=== PATIENT | male | born 1985 | race Caucasian/White ===

== ENCOUNTER 2018-08-14 23:58 | Emergency (ER) | payer OTHER ==
[~2018-08-14] VITALS: Ht 185.4 cm; Wt 120.2 kg
[2018-08-15 01:12] LABS: BASO % 0 % (0-3); EOS # 0.4 x10^3/uL (0.0-0.7); EOS % 3 % (0-3); HEMATOCRIT 44.5 % (39.0-53.0); HEMOGLOBIN 15.6 g/dL (13.0-17.5); LYMPH # 3.1 x10^3/uL (1.0-4.8); LYMPH % 29 % (24-48); MEAN CORPUSCULAR HEMOGLOBIN 33 pg (25-35); MEAN CORPUSCULAR HGB CONC 35 g/dL (31-37); MEAN CORPUSCULAR VOLUME 93 fL (79-100); MONO # 0.7 x10^3/uL (0.0-1.1); MONO % 7 % (0-9); NEUT # 6.7 x10^3uL (1.8-7.7); NEUT % 61 % (31-73); PLATELET COUNT 413 x10^3/uL (140-400); RED BLOOD COUNT 4.79 x10^6/uL (4.30-5.70); RED CELL DISTRIBUTION WIDTH 13.8 % (11.5-14.5); WHITE BLOOD COUNT 10.9 x10^3/uL (4.0-11.0)
[2018-08-15 01:16] LABS: BILIRUBIN,URINE NEGATIVE (NEG); CLARITY,URINE CLOUDY; COLOR,URINE YELLOW; NITRITE,URINE NEGATIVE (NEG); PROTEIN,URINE NEGATIVE (NEG-TRACE)
--- NOTE | 2018-08-15 01:19 | PHYS DOC ---
Past Medical History Smoking: Less than 1pk/day Alcohol Use: Occasionally Adult General Chief Complaint Chief Complaint: FLANK PAIN HPI HPI Patient is a 33 year old man who presents with left sided chest pain and left elbow pain The patient works changing [employer] all day and at 5:00pm this afternoon, he noted onset of left-sided flank pain and chest pain. He noted no direct trauma to his left side or to his left elbow. he has repetitive motion with his left elbow. He uses an impact drill with a lot of repetitive motion and has focal pain when he flexes and extends his left elbow. Since 5:00pm, his pain has been 8/10 severity. He has left-sided chest pain that hurts worse when he takes a deep breath. He denies high cholesterol and high blood pressure. Patient is on phentermine for diet control Review of Systems Review of Systems Constitutional: Denies fever or chills Eyes: Denies change in visual acuity, redness, or eye pain HENT: Denies nasal congestion or sore throat Respiratory: Denies cough or shortness of breath Cardiovascular: with chest pain, no palpitations GI: Denies abdominal pain, nausea, vomiting, bloody stools or diarrhea : Denies dysuria or hematuria Musculoskeletal: Denies back pain, with left elbow pain Integument: Denies rash or skin lesions Neurologic: Denies headache, focal weakness or sensory changes Endocrine: Denies polyuria or polydipsia All other systems were reviewed and found to be within normal limits, except as documented in this note. Current Medications Current Medications Current Medications Medications (Trade) Dose Ordered Sig/Shahida Start Time Stop Time Status Last Admin Dose Admin Ketorolac Tromethamine (Toradol 15mg Vial) 15 mg 1X ONCE 08/15/18 02:15 08/15/18 02:16 DC 08/15/18 02:15 15 MG Morphine Sulfate (Morphine Sulfate) 5 mg 1X ONCE 08/15/18 01:30 08/15/18 01:31 DC 08/15/18 01:35 5 MG Ondansetron HCl (Zofran) 4 mg 1X ONCE 08/15/18 01:30 08/15/18 01:31 DC 08/15/18 01:34 4 MG Sodium Chloride 1,000 ml @ 1,000 mls/hr 1X ONCE 08/15/18 01:30 08/15/18 02:29 DC 08/15/18 01:29 1,000 MLS/HR Tamsulosin HCl (Flomax) 0.4 mg 1X ONCE 08/15/18 01:30 08/15/18 01:31 DC 08/15/18 01:34 0.4 MG Allergies Allergies Allergies Coded Allergies Type Severity Reaction Last Updated Verified No Known Drug Allergies 08/15/18 No Physical Exam Physical Exam Constitutional: Well developed, well nourished, no acute distress, non-toxic appearance. HENT: Normocephalic, atraumatic, bilateral external ears normal, oropharynx moist, no oral exudates, nose normal. Eyes: PERRLA, EOMI, conjunctiva normal, no discharge. Neck: Normal range of motion, no tenderness, supple, no stridor. Cardiovascular:Heart rate regular rhythm, no murmur Lungs & Thorax: Bilateral breath sounds clear to auscultation, with left lower chest, flank and back pain to palpation Abdomen: Bowel sounds normal, soft, no tenderness, no masses, no pulsatile masses. Skin: Warm, dry, no erythema, no rash. Back: No tenderness, no CVA tenderness. Extremities: Left elbow with posterior tenderness with FROM, no swelling or deformity, no cyanosis, no clubbing, ROM intact, no edema. Neurologic: Alert and oriented X 3, normal motor function, normal sensory function, no focal deficits noted. gait normal Psychologic: Affect normal, judgement normal, mood normal. Current Patient Data Vital Signs Vital Signs Date Time Temp Pulse Resp B/P (MAP) Pulse Ox O2 Delivery O2 Flow Rate FiO2 08/15/18 03:01 83 18 156/89 (111) 97 Room Air 08/15/18 00:22 97.8 97.8 Lab Values Laboratory Tests Test 08/15/18 00:30 08/15/18 01:00 Urine Collection Type Unknown Urine Color Yellow Urine Clarity Cloudy Urine pH 7.0 Urine Specific [place] >=1.030 Urine Protein Negative mg/dL (NEG-TRACE) Urine Glucose (UA) Negative mg/dL (NEG) Urine Ketones (Stick) Negative mg/dL (NEG) Urine Blood Negative (NEG) Urine Nitrite Negative (NEG) Urine Bilirubin Negative (NEG) Urine Urobilinogen Dipstick 1.0 mg/dL (0.2 mg/dL) Urine Leukocyte Esterase Negative (NEG) Urine RBC 3-5 /HPF (0-2) Urine WBC Occ /HPF (0-4) Urine Squamous Epithelial Cells Few /LPF Urine Amorphous Sediment Present /HPF Urine Bacteria Few /HPF (0-FEW) Urine Hyaline Casts Moderate /HPF Urine Granular Casts Few /HPF Urine Mucus Marked /LPF Urine Opiates Screen Neg (NEG) Urine Methadone Screen Neg (NEG) Urine Barbiturates Neg (NEG) Urine Phencyclidine Screen Neg (NEG) Urine Amphetamine/Methamphetamine Pos (NEG) Urine Benzodiazepines Screen Neg (NEG) Urine Cocaine Screen Neg (NEG) Urine Cannabinoids Screen Neg (NEG) Urine Ethyl Alcohol Neg (NEG) White Blood Count 10.9 x10^3/uL (4.0-11.0) Red Blood Count 4.79 x10^6/uL (4.30-5.70) Hemoglobin 15.6 g/dL (13.0-17.5) Hematocrit 44.5 % (39.0-53.0) Mean Corpuscular Volume 93 fL (79-100) Mean Corpuscular Hemoglobin 33 pg (25-35) Mean Corpuscular Hemoglobin Concent 35 g/dL (31-37) Red Cell Distribution Width 13.8 % (11.5-14.5) Platelet Count 413 x10^3/uL (140-400) H Neutrophils (%) (Auto) 61 % (31-73) Lymphocytes (%) (Auto) 29 % (24-48) Monocytes (%) (Auto) 7 % (0-9) Eosinophils (%) (Auto) 3 % (0-3) Basophils (%) (Auto) 0 % (0-3) Neutrophils # (Auto) 6.7 x10^3uL (1.8-7.7) Lymphocytes # (Auto) 3.1 x10^3/uL (1.0-4.8) Monocytes # (Auto) 0.7 x10^3/uL (0.0-1.1) Eosinophils # (Auto) 0.4 x10^3/uL (0.0-0.7) Basophils # (Auto) 0.0 x10^3/uL (0.0-0.2) Sodium Level 140 mmol/L (136-145) Potassium Level 4.3 mmol/L (3.5-5.1) Chloride Level 104 mmol/L (98-107) Carbon Dioxide Level 25 mmol/L (21-32) Anion Gap 11 (6-14) Blood Urea Nitrogen 14 mg/dL (8-26) Creatinine 1.2 mg/dL (0.7-1.3) Estimated GFR (Cockcroft-Gault) 68.9 BUN/Creatinine Ratio 12 (6-20) Glucose Level 95 mg/dL (70-99) Calcium Level 9.7 mg/dL (8.5-10.1) Total Bilirubin 0.2 mg/dL (0.2-1.0) Aspartate Amino Transferase (AST) 19 U/L (15-37) Alanine Aminotransferase (ALT) 21 U/L (16-63) Alkaline Phosphatase 58 U/L (46-116) Troponin I Quantitative < 0.017 ng/mL (0.000-0.055) Total Protein 7.6 g/dL (6.4-8.2) Albumin 3.3 g/dL (3.4-5.0) L Albumin/Globulin Ratio 0.8 (1.0-1.7) L Lipase 78 U/L (73-393) Ethyl Alcohol Level < 10 mg/dL (0-10) Laboratory Tests 08/15/18 01:00 Laboratory Tests 08/15/18 01:00 EKG EKG ECG 02:37 NSR @ 70 with normal axis, normal interval and no ST-T wave changes suggestive of ischemia Radiology/Procedures Radiology/Procedures [facility] [address] [place] [address] IMAGING REPORT Signed PATIENT: ANABELLE PADILLA ACCOUNT: [id number] : 1985 LOCATION: ER AGE: 33 SEX: M EXAM STATUS: DEP ER ORD. PHYSICIAN: CORI DIAS APRN REASON: pain no injury PROCEDURE: RIBS LEFT AND PA CHEST Left RIBS with chest, 3 views, 08/15/2018: HISTORY: Rib pain, no injury No rib fracture or destructive lesion is seen. No underlying pneumothorax, hemothorax or pulmonary infiltrate is seen. The heart size is normal. IMPRESSION: No significant left rib abnormality is detected. Electronically signed by: Abraham Burdick MD (08/15/2018 8:07 AM) [facility] DICTATED and SIGNED BY: ABRAHAM BURDICK MD DATE: 08/15/18 [id number] [place] [address] IMAGING REPORT Signed PATIENT: ANABELLE PADILLA ACCOUNT: [id number] : 1985 LOCATION: ER AGE: 33 SEX: M EXAM STATUS: DEP ER ORD. PHYSICIAN: CORI DIAS APRN REASON: pain no injury PROCEDURE: ELBOW LEFT 3V Left elbow, 3 views, 08/15/2018: HISTORY: Elbow pain No fracture or dislocation is identified. No significant arthritic change is seen. A small sclerotic focus in the proximal radius is compatible with a bone island. No joint effusion is evident. IMPRESSION: No significant left elbow abnormality is detected. Electronically signed by: Abraham Burdick MD (08/15/2018 8:08 AM) [facility] DICTATED and SIGNED BY: ABRAHAM BURDICK MD DATE: 08/15/18 0808 [facility] [address] [place] [address] IMAGING REPORT Signed PATIENT: ANABELLE PADILLA ACCOUNT: [id number] : 1985 LOCATION: ER AGE: 33 SEX: M EXAM STATUS: REG ER ORD. PHYSICIAN: CORI DIAS APRN REASON: left flank pain PROCEDURE: CT ABDOMEN PELVIS WO CONTRAST CT abdomen and pelvis without contrast: Reason for examination: Left flank pain. Helical images were obtained through the abdomen pelvis with no intravenous or oral contrast. Reconstruction was performed in sagittal and coronal plane. Exposure: One or more of the following individualized dose reduction techniques were utilized for this examination: 1. Automated exposure control 2. Adjustment of the mA and/or kV according to patient size 3. Use of iterative reconstruction technique. The lung bases are clear. The heart size is normal with no pericardial effusion. No abnormality seen at the liver, spleen, adrenal glands or pancreas. Gallbladder is contracted but there are no choleliths evident. The abdominal aorta and inferior vena cava show no acute abnormalities. The appendix appears be surgically absent. The stomach is not distended. The colon shows no evidence of diverticulosis or diverticulitis. The small intestinal tract is not distended and shows no bowel obstruction. The kidneys show no renal masses, hydronephrosis, renal calculi or evidence of obstructive uropathy. No abnormality seen at the bladder, prostate gland or seminal vesicles. No free fluid or free air is seen in the abdomen or pelvis. No acute bony abnormalities are seen. IMPRESSION: Contracted gallbladder but no cholelithiasis. No renal calculi or evidence of obstructive uropathy. No evidence of diverticulitis. No other focal abnormality seen in the abdomen or pelvis. Electronically signed by: Pedro Michael MD (08/15/2018 2:49 AM) [id number] DICTATED and SIGNED BY: PEDRO MICHAEL MD DATE: 08/15/18 0242 Course & Med Decision Making Course & Med Decision Making Pertinent Labs and Imaging studies reviewed. (See chart for details) Emergency Department course Patient presents with left chest, flank and elbow pain DDx- ACS, kidney stones, chest wall strain, elbow strain, fracture 03:20 The patient was stable emergency department improved after IV Toradol. ECG and troponin showed no evidence acute coronary syndrome. Chest x-ray is unremarkable. Abdominal pelvic CT scan was unremarkable. Labs are unremarkable. UDS positive for methamphetamines. The patient takes phentermine for diet control. Patient will follow-up with PCP for further evaluation. Dragon Disclaimer Dragon Disclaimer This electronic medical record was generated, in whole or in part, using a voice recognition dictation system. Departure Departure Impression: Primary Impression: Chest wall muscle strain Additional Impressions: Sprain of left elbow Muscle strain of left upper back Methamphetamine use Disposition: 01 HOME, SELF-CARE Condition: STABLE Referrals: SUE BOO MD (PCP) Follow-up tomorrow for further evaluation Patient Instructions: Chest Tube, Elbow Injury, Muscle Strain Additional Instructions: If you develop worse pain, shortness breath, weakness return to emergency department immediately Scripts Hydrocodone/Apap 5-325 (NORCO 5-325 TABLET) 1 Each Tablet 1 TAB PO PRN Q6HRS PRN for PAIN for 3 Days, #12 TAB 0 Refills Prov: SADIE MATTHEWS MD 08/15/18 Ibuprofen (IBUPROFEN) 800 Mg Tablet 800 MG PO PRN Q8HRS PRN for INFLAMMATION for 5 Days, #15 TAB Take with food Prov: SADIE MATTHEWS MD 08/15/18 Problem Qualifiers SADIE MATTHEWS MD Aug 15, 2018 01:19
[2018-08-15] MEDS ORDERED: TAMSULOSIN 0.4 MG CAP.ER.24H. PO ONE (01:30)
[2018-08-15] MEDS ORDERED: ONDANSETRON PF 4 MG/2 ML VIAL. IV ONE (01:30)
[2018-08-15] MEDS ORDERED: IV NORMAL SALINE 1000ML BAG 1,000 ML IV ONE (01:30)
[2018-08-15] MEDS ORDERED: MORPHINE SULFATE 10 MG/ML VIAL. IV ONE (01:30)
[2018-08-15 01:31] LABS: CALCIUM 9.7 mg/dL (8.5-10.1); CREATININE 1.2 mg/dL (0.7-1.3); GFR 68.9; POTASSIUM 4.3 mmol/L (3.5-5.1)
[2018-08-15 01:31] LABS: BARBITURATES NEG (NEG); BENZODIAZEPINES NEG (NEG); CANNABINOIDS NEG (NEG); COCAINE NEG (NEG); METHADONE NEG (NEG); OPIATES NEG (NEG); PHENCYCLIDINE NEG (NEG)
[2018-08-15 01:35] LABS: ALBUMIN 3.3 g/dL (3.4-5.0); ALBUMIN/GLOBULIN RATIO 0.8 (1.0-1.7); TOTAL BILIRUBIN 0.2 mg/dL (0.2-1.0); TOTAL PROTEIN 7.6 g/dL (6.4-8.2)
[2018-08-15 01:37] LABS: BACTERIA,URINE FEW /HPF (0-FEW); WBC,URINE OCC /HPF (0-4)
[2018-08-15 01:38] LABS: AMORPHOUS SEDIMENT,UR PRESENT /HPF; GRANULAR CASTS,URINE FEW /HPF; HYALINE CASTS, URINE MODERATE /HPF; SQUAMOUS EPITHELIAL CELL,UR FEW /LPF
[2018-08-15 01:42] LABS: AMPHETAMINE/METHAMPHETAMINE POS (NEG)
[2018-08-15] MEDS ORDERED: KETOROLAC 15 MG/ML VIAL. IV ONE (02:15)
--- NOTE | 2018-08-15 02:52 | RAD ---
CT abdomen and pelvis without contrast: Reason for examination: Left flank pain. Helical images were obtained through the abdomen pelvis with no intravenous or oral contrast. Reconstruction was performed in sagittal and coronal plane. Exposure: One or more of the following individualized dose reduction techniques were utilized for this examination: 1. Automated exposure control 2. Adjustment of the mA and/or kV according to patient size 3. Use of iterative reconstruction technique. The lung bases are clear. The heart size is normal with no pericardial effusion. No abnormality seen at the liver, spleen, adrenal glands or pancreas. Gallbladder is contracted but there are no choleliths evident. The abdominal aorta and inferior vena cava show no acute abnormalities. The appendix appears be surgically absent. The stomach is not distended. The colon shows no evidence of diverticulosis or diverticulitis. The small intestinal tract is not distended and shows no bowel obstruction. The kidneys show no renal masses, hydronephrosis, renal calculi or evidence of obstructive uropathy. No abnormality seen at the bladder, prostate gland or seminal vesicles. No free fluid or free air is seen in the abdomen or pelvis. No acute bony abnormalities are seen. IMPRESSION: Contracted gallbladder but no cholelithiasis. No renal calculi or evidence of obstructive uropathy. No evidence of diverticulitis. No other focal abnormality seen in the abdomen or pelvis. Electronically signed by: Anika Parry MD (08/15/2018 2:49 AM) [facility]
[2018-08-15 03:01] VITALS: BP 156/89
[2018-08-15] MEDS ORDERED: HYDR-971 PO (03:33)
[2018-08-15] MEDS ORDERED: IBUP-1060 PO (03:33)
--- NOTE | 2018-08-15 06:18 | EKG ---
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
--- NOTE | 2018-08-15 08:11 | RAD ---
Left RIBS with chest, 3 views, 08/15/2018: HISTORY: Rib pain, no injury No rib fracture or destructive lesion is seen. No underlying pneumothorax, hemothorax or pulmonary infiltrate is seen. The heart size is normal. IMPRESSION: No significant left rib abnormality is detected. Electronically signed by: Abraham Burdick MD (08/15/2018 8:07 AM) [facility]
--- NOTE | 2018-08-15 08:11 | RAD ---
Left elbow, 3 views, 08/15/2018: HISTORY: Elbow pain No fracture or dislocation is identified. No significant arthritic change is seen. A small sclerotic focus in the proximal radius is compatible with a bone island. No joint effusion is evident. IMPRESSION: No significant left elbow abnormality is detected. Electronically signed by: Abraham Burdick MD (08/15/2018 8:08 AM) [facility]
== END 2018-08-15 03:40 | disposition home or self-care (01) ==
LOC: ER 23:58
DX: S53.402A Unspecified sprain of left elbow, initial encounter (principal); S29.011A Strain of muscle and tendon of front wall of thorax, initial encounter; S29.012A Strain of muscle and tendon of back wall of thorax, initial encounter; F15.90 Other stimulant use, unspecified, uncomplicated; F17.200 Nicotine dependence, unspecified, uncomplicated; K82.0 Obstruction of gallbladder; X50.9XXA Other and unspecified overexertion or strenuous movements or postures, initial encounter; Y93.89 Activity, other specified; Y92.89 Other specified places as the place of occurrence of the external cause; Y99.8 Other external cause status
CPT/HCPCS: 36415; 71101; 73080; 74176; 80053; 80307; 81001; 83690; 84484; 85025; 93005; 96374; 96375; 99285; G0480; J1885; J2270; J2405; J7030; G0479